=== PATIENT | male | born 2000 | race Caucasian/White ===

== ENCOUNTER 2020-02-15 17:53 | Emergency (ER) | payer MEDICAID, OTHER ==
[~2020-02-15] VITALS: Ht 180.3 cm; Wt 108.9 kg
[2020-02-15] MEDS ORDERED: SODIUM CHLORIDE 0.9% 1,000 ML IV ONE ×2 (18:15)
[2020-02-15 19:01] LABS: Basophils # (auto) 0 10 ^3/uL (0-0.2); Basophils % (auto) 0.2 % (0.0-2.0); Eosinophils # (auto) 0 10 ^3/uL (0-0.8); Eosinophils % (auto) 0.1 % (0.0-7.0); Hematocrit 45.7 % (41.0-53.0); Hemoglobin 15.8 g/dL (13.5-17.5); Lymphocytes # (auto) 1.4 10 ^3/uL (0.4-5.4); Lymphocytes % (auto) 10.9 % (10.0-50.0); Mean Corpuscular Hemoglobin 31.7 pg (28.0-32.0); Mean Corpuscular Hgb Conc. 34.5 g/dL (32.0-36.0); Mean Corpuscular Volume 91.7 fL (80.0-100.0); Monocytes # (auto) 0.3 10 ^3/uL (0-1.3); Monocytes % (auto) 2.5 % (0.0-12.0); Neutrophils # (auto) 11.1 10 ^3/uL (1.6-8.6); Neutrophils % (auto) 86.3 % (37.0-80.0); Nucleated Red Blood Cells % 0.1 %; Platelet Count (auto) 226 10^3/uL (140-450); Red Blood Cells 4.98 10^6/uL (4.5-5.90); Red Cell Distribution Width 12.9 % (11.8-14.3); White Blood Cell 12.8 10^3/uL (4.4-10.8)
[2020-02-15 19:18] LABS: Salicylate < 1.7 mg/dL (2.8-20.0)
[2020-02-15 19:19] LABS: Chloride 103 mmol/L (98-107); Potassium 3.2 mmol/L (3.5-5.1); Sodium 135 mmol/L (136-145)
[2020-02-15 19:27] LABS: Acetaminophen < 2.0 ug/mL (10-30)
[2020-02-15 19:35] LABS: Alanine Aminotransferase 104 U/L (16-61); Albumin 3.4 g/dL (3.4-5.0); Alkaline Phosphatase 131 U/L (45-117); Anion Gap 7 (5-15); Aspartate Aminotransferase 40 U/L (15-37); BUN/Creatinine Ratio 12.7; Bilirubin, Total 0.4 mg/dL (0.2-1.0); Blood Alcohol < 3.0 mg/dL (0-5); Blood Urea Nitrogen 13 mg/dL (7-18); Calcium 8.2 mg/dL (8.5-10.1); Carbon Dioxide 25 mmol/L (21-32); GFR African American 120 mL/min; GFR Non-African American 99 mL/min; Glucose 158 mg/dL (74-106); Magnesium 2.1 mg/dL (1.6-2.6); Total Protein 7.4 g/dL (6.4-8.2)
[2020-02-15 19:36] LABS: INR 0.99 (0.9-1.15); Partial Thromboplastin Time 23.6 sec (23.0-31.2)
[2020-02-15] MEDS ORDERED: IOHEXOL 350 MG/ML 100ML IJ ONE (22:46)
[2020-02-16] MEDS ORDERED: cefTRIAXone 1GM/50ML D5W 50 ML IV ONE (01:15)
[2020-02-16 03:46] VITALS: BP 122/71
== END 2020-02-16 04:10 | disposition short-term general hospital (02) ==
LOC: EDSEX 17:53 → EDBD 17:53 → ER 18:01
DX: T50.904A Poisoning by unspecified drugs, medicaments and biological substances, undetermined, initial encounter (principal); R06.03 Acute respiratory distress; X58.XXXA Exposure to other specified factors, initial encounter
CPT/HCPCS: 36415; 70450; 71046; 71275; 80053; 80320; 80329; 83735; 84484; 85025; 85379; 85610; 85730; 93005; 96361; 96365; 99285; J0696; J7030; Q9967

== ENCOUNTER 2020-02-24 00:42 | Emergency (ER) | payer OTHER ==
[~2020-02-24] VITALS: Ht 177.8 cm; Wt 90.7 kg
[2020-02-24 01:23] LABS: Basophils # (auto) 0 10 ^3/uL (0-0.2); Basophils % (auto) 0.2 % (0.0-2.0); Eosinophils # (auto) 0.1 10 ^3/uL (0-0.8); Eosinophils % (auto) 0.9 % (0.0-7.0); Hemoglobin 16.2 g/dL (13.5-17.5); Lymphocytes # (auto) 2.9 10 ^3/uL (0.4-5.4); Lymphocytes % (auto) 33.7 % (10.0-50.0); Mean Corpuscular Hemoglobin 31.6 pg (28.0-32.0); Mean Corpuscular Hgb Conc. 33.7 g/dL (32.0-36.0); Mean Corpuscular Volume 93.9 fL (80.0-100.0); Monocytes # (auto) 0.4 10 ^3/uL (0-1.3); Neutrophils # (auto) 5.2 10 ^3/uL (1.6-8.6); Neutrophils % (auto) 60.2 % (37.0-80.0); Nucleated Red Blood Cells % 0.1 %; Platelet Count (auto) 355 10^3/uL (140-450); Red Blood Cells 5.11 10^6/uL (4.5-5.90); Red Cell Distribution Width 13.1 % (11.8-14.3); White Blood Cell 8.7 10^3/uL (4.4-10.8)
[2020-02-24 01:40] LABS: Alanine Aminotransferase 189 U/L (16-61); Anion Gap 13 (5-15); Blood Alcohol < 3.0 mg/dL (0-5); Blood Urea Nitrogen 7 mg/dL (7-18); Calcium 8.2 mg/dL (8.5-10.1); Carbon Dioxide 24 mmol/L (21-32); Chloride 99 mmol/L (98-107); GFR African American 83 mL/min; GFR Non-African American 69 mL/min; Glucose 244 mg/dL (74-106); Magnesium 2.2 mg/dL (1.6-2.6); Potassium 3.8 mmol/L (3.5-5.1); Sodium 136 mmol/L (136-145)
[2020-02-24 01:42] LABS: Acetaminophen < 2.0 ug/mL (10-30); Salicylate < 1.7 mg/dL (2.8-20.0)
[2020-02-24 01:43] LABS: Alkaline Phosphatase 124 U/L (45-117); Aspartate Aminotransferase 84 U/L (15-37); Bilirubin, Total 0.2 mg/dL (0.2-1.0)
[2020-02-24] MEDS ORDERED: ACETYLCYSTEINE ORAL for CIN 20%(200MG/ML) 4ML PO ONE (04:30)
[2020-02-24] MEDS ORDERED: ACETYLCYSTEINE 6GM/30ml (200mg/ml) IV SOLN 30ML IV ONE (05:05)
[2020-02-24] MEDS ORDERED: ACETYLCYSTEINE 200MG/ML IV SOL 15,000 MG in D5W 5% 250 ML IV ONE (05:15)
[2020-02-24] MEDS ORDERED: levoFLOXacin 750MG 150 ML IV ONE (06:15)
[2020-02-24 06:17] LABS: Salicylate < 1.7 mg/dL (2.8-20.0)
[2020-02-24 06:21] LABS: Amphetamine Screen, Urine NEGATIVE (NEGATIVE); Barbiturate Scree,Urine NEGATIVE (NEGATIVE); Benzodiazephine Screen, Urine POSITIVE (NEGATIVE); Cocaine Screen, Urine NEGATIVE (NEGATIVE)
[2020-02-24 06:21] LABS: Albumin 2.9 g/dL (3.4-5.0); BUN/Creatinine Ratio 9.2; Calcium 8.3 mg/dL (8.5-10.1); Total Protein 6.5 g/dL (6.4-8.2)
[2020-02-24 06:22] LABS: Acetaminophen < 2.0 ug/mL (10-30)
[2020-02-24 06:25] LABS: Bilirubin, Total 0.4 mg/dL (0.2-1.0)
[2020-02-24 06:32] LABS: Urine Amorphous Crystal FEW /hpf (None Seen); Urine Bacteria NONE SEEN /hpf (None Seen); Urine Blood Negative /uL (Negative); Urine Hyaline Cast FEW /lpf (0 - 2); Urine Mucus FEW (None Seen); Urine Specific Gravity 1.015 (1.001-1.035); Urine WBC 4 /hpf (0 - 3)
[2020-02-24 06:33] LABS: Cannabinoid Screen, Urine POSITIVE (NEGATIVE); Opiate Scree,Urine NEGATIVE (NEGATIVE); Phencyclidine Screen, Urine NEGATIVE (NEGATIVE)
--- NOTE | 2020-02-24 06:43 | NUR ---
Respiratory note: ASSESSED PT FOR PRN BIPAP. HR 97, RR 26, POX 97% ON 15L NRB, BS ARE COARSE. PT IS ASLEEP. NO DISTRESS NOTED.
[2020-02-24 10:00] VITALS: BP 126/74
[2020-02-24 11:25] LABS: Albumin 2.8 g/dL (3.4-5.0); BUN/Creatinine Ratio 12.7; Calcium 8.4 mg/dL (8.5-10.1); Potassium 4.5 mmol/L (3.5-5.1)
[2020-02-24 11:27] LABS: Bilirubin, Total 0.8 mg/dL (0.2-1.0); Total Protein 6.4 g/dL (6.4-8.2)
== END 2020-02-24 11:51 | disposition left against medical advice (07) ==
LOC: ER 00:42
DX: T50.904A Poisoning by unspecified drugs, medicaments and biological substances, undetermined, initial encounter (principal); R06.02 Shortness of breath; J18.8 Other pneumonia, unspecified organism; Z20.828 Contact with and (suspected) exposure to other viral communicable diseases; Y92.89 Other specified places as the place of occurrence of the external cause
CPT/HCPCS: 36415; 36600; 71045; 80053; 80307; 80320; 80329; 81001; 82550; 82805; 83735; 85025; 87040; 87077; 87426; 96365; 96366; 96367; 99285; C9803; J0132; J1956; J7060; U0003